=== PATIENT | female | born 1985 ===

== ENCOUNTER 2019-02-06 08:36 | Emergency (ER) | payer BC, MEDICAID ==
[2019-02-06 08:38] VITALS: BMI 23.8
[2019-02-06 08:39] VITALS: O2SAT 100
[2019-02-06 10:07] LABS: BASO % 0.6 % (0.0-2.0); EOS # 0.1 K/uL (0.0-0.7); EOS % 1.6 % (0.0-4.0); HEMOGLOBIN 12.9 g/dL (12.0-16.0); LYMPH # 1.4 K/uL (1.0-4.3); LYMPH % 43.3 % (20.0-40.0); MEAN CELL VOLUME 86.2 fl (81.0-99.0); MEAN CORPUSCULAR HEMOGLOBIN 29.3 pg (27.0-31.0); MEAN PLATELET VOLUME 8.4 fl (7.2-11.7); MONO # 0.4 K/uL (0.0-0.8); MONO % 10.8 % (0.0-10.0); NEUT # 1.4 K/uL (1.8-7.0); NEUT % 43.7 % (50.0-75.0); RBC 4.38 Mil/uL (3.80-5.20); RED CELL DISTRIBUTION WIDTH 13.3 % (11.5-14.5); WHITE BLOOD COUNT 3.3 K/uL (4.8-10.8)
[2019-02-06 10:19] LABS: BLOOD UREA NITROGEN 11 mg/dl (7-17); CALCIUM 9.4 mg/dL (8.4-10.2); GFR NON-AFRICAN AMERICAN > 60
--- NOTE | 2019-02-06 11:23 | MRI ---
Date of service: 02/06/2019 PROCEDURE: MR LUMBAR SPINE WITHOUT CONTRAST HISTORY: Lower back pain right leg pain weakness COMPARISON: None available. TECHNIQUE: Multiecho multiplanar sequences were performed through the lumbar spine without the use of intravenous contrast. FINDINGS: There is normal alignment of the lumbar vertebral bodies. There is normal lumbar lordosis. There is no acute fracture, spondylolysis or spondylolisthesis. Bone marrow signal is within normal limits. The conus medullaris terminates at a normal level and the nerve roots of cauda equina are normal. The paraspinous soft tissues are normal. Imaged portion of the retroperitoneum is within normal limits. T12-L1: No disc herniation, spinal canal stenosis or neural foraminal narrowing. L1-2: No disc herniation, spinal canal stenosis or neural foraminal narrowing. L2-3: No disc herniation, spinal canal stenosis or neural foraminal narrowing. Mild bilateral facet arthropathy. L3-4: Minimal posterior disc bulge. No disc herniation, spinal canal stenosis or neural foraminal narrowing. L4-5: Mild posterior disc bulge and mild bilateral facet arthropathy without spinal canal stenosis or neural foraminal narrowing. L5-S1: Central and right paracentral annular tear and broad-based disc protrusion abuts the traversing right S1 nerve root. No central spinal canal stenosis. Mild bilateral facet arthropathy without neural foraminal narrowing. OTHER FINDINGS: None. IMPRESSION: Central and right paracentral annular tear and broad-based disc protrusion at L5-S1 abuts the traversing right S1 nerve root without spinal spinal canal stenosis. No neural foraminal narrowing.
--- NOTE | 2019-02-06 12:30 | ED PDOC ---
HPI: Back Time Seen by Provider: 02/06/19 08:57 Chief Complaint (Nursing): Back Pain Chief Complaint (Provider): Back Pain History Per: Patient History/Exam Limitations: no limitations Onset/Duration Of Symptoms: Days (x 2) Current Symptoms Are (Timing): Still Present Quality Of Discomfort: "Pain" Associated Symptoms: New Weakness, New Numbness Additional Complaint(s): 33 year old male presents to the ED for evaluation of severe lower back pain radiating to her right leg associated with numbness and weakness for two days. Patient reports difficulty walking because the pain worsens when she moves. Her right leg becomes weak to the point where she has to lie down. Patient took Tylenol and Motrin with no relief. Denies urinary complaints, such as incontinence, gait problems and a prior history of back pain. PMD: Camilo Past Medical History Reviewed: Historical Data, Nursing Documentation, Vital Signs Vital Signs: Last Vital Signs Temp 98.6 F 02/06/19 08:38 Pulse 67 02/06/19 08:38 Resp 18 02/06/19 08:38 BP 125/82 02/06/19 08:38 Pulse Ox 100 02/06/19 08:38 - Medical History PMH: No Chronic Diseases - Surgical History Surgical History: No Surg Hx - Family History Family History: States: Unknown Family Hx - Home Medications Home Medications: Ambulatory Orders Medication Instructions Recorded Methylprednisolone [Medrol Dose 4 mg PO ASDIR #21 mg 02/06/19 Pack (21 tabs)] oxyCODONE/Acetaminophen [Percocet 1 ea PO Q6 PRN #12 tab 02/06/19 5/325 mg Tab] - Allergies Allergies/Adverse Reactions: Allergies Allergy/AdvReac Type Severity Reaction Status Date / Time No Known Allergies Allergy Verified 02/06/19 08:50 Review of Systems ROS Statement: Except As Marked, All Systems Reviewed And Found Negative Constitutional: Positive for: Weakness (and numbness in right leg ) Musculoskeletal: Positive for: Back Pain (radiating to legs) Physical Exam - Reviewed Nursing Documentation Reviewed: Yes Vital Signs Reviewed: Yes - Physical Exam Appears: Positive for: Non-toxic, No Acute Distress Head Exam: Positive for: ATRAUMATIC, NORMAL INSPECTION, NORMOCEPHALIC Skin: Positive for: Normal Color, Warm, Dry Eye Exam: Positive for: EOMI, Normal appearance, PERRL Neck: Positive for: Normal, Painless ROM, Supple Cardiovascular/Chest: Positive for: Regular Rate, Rhythm. Negative for: Murmur Respiratory: Positive for: Normal Breath Sounds. Negative for: Respiratory Distress Gastrointestinal/Abdominal: Positive for: Normal Exam, Soft. Negative for: Tenderness Back: Positive for: Other (tenderness to lower back paraspinally) Extremity: Positive for: Other (+ straight leg test bilaterally at 45 degrees). Negative for: Deformity Neurological/Psych: Positive for: Awake, Alert, Normal Tone, Symmetric/Intact Strength (5/5 strength bilaterally), Oriented (x 3), Gait (steady). Negative for: Motor/Sensory Deficits - Laboratory Results Result Diagrams: 02/06/19 09:50 02/06/19 09:50 - ECG O2 Sat by Pulse Oximetry: 100 (RA) Pulse Ox Interpretation: Normal - Progress Re-evaluation Time: 14:20 Condition: Re-examined, Improved Medical Decision Making Medical Decision Makin:27 Impression: back pain and right leg paresthesia/ weakness Differential dxs include but are not limited to: lumbar radiculopathy r/o cauda equina Initial Plan: --BMP --CBC --ESR --Urine preg --Urine dip --Lumbar spine MRI --Flexeril 10 mg PO --Toradol 15 mg PO 11:20 MRI FINDINGS: There is normal alignment of the lumbar vertebral bodies. There is normal lumbar lordosis. There is no acute fracture, spondylolysis or spondylolisthesis. Bone marrow signal is within normal limits. The conus medullaris terminates at a normal level and the nerve roots of cauda equina are normal. The paraspinous soft tissues are normal. Imaged portion of the retroperitoneum is within normal limits. T12-L1: No disc herniation, spinal canal stenosis or neural foraminal narrowing. L1-2: No disc herniation, spinal canal stenosis or neural foraminal narrowing. L2-3: No disc herniation, spinal canal stenosis or neural foraminal narrowing. Mild bilateral facet arthropathy. L3-4: Minimal posterior disc bulge. No disc herniation, spinal canal stenosis or neural foraminal narrowing. L4-5: Mild posterior disc bulge and mild bilateral facet arthropathy without spinal canal stenosis or neural foraminal narrowing. L5-S1: Central and right paracentral annular tear and broad-based disc protrusion abuts the traversing right S1 nerve root. No central spinal canal stenosis. Mild bilateral facet arthropathy without neural foraminal narrowing. OTHER FINDINGS: None. IMPRESSION: Central and right paracentral annular tear and broad-based disc protrusion at L5-S1 abuts the traversing right S1 nerve root without spinal spinal canal stenosis. No neural foraminal narrowing. 1400 Patient was given instructions on safe opioid Rx use. I explained risks and benefits associated with opioid use, offered alternatives, and provided safety instructions. Scribe Attestation: Documented by Ana Rosa Grove, acting as a scribe Renetta Aly MD Provider Scribe Attestation: All medical record entries made by the Scribe were at my direction and personally dictated by me. I have reviewed the chart and agree that the record accurately reflects my personal performance of the history, physical exam, medical decision making, and the department course for this patient. I have also personally directed, reviewed, and agree with the discharge instructions and disposition Disposition - Clinical Impression Clinical Impression: Back pain, Bulging lumbar disc - Patient ED Disposition Is Patient to be Admitted: No Doctor Will See Patient In The: Office Counseled Patient/Family Regarding: Studies Performed, Diagnosis, Need For Followup - Disposition Referrals: Ky Garrett MD [Staff Provider] - Jenniffer Richard MD [Staff Provider] - [facility] [Outside] Disposition: Routine/Home Disposition Time: 14:21 Condition: IMPROVED Additional Instructions: ARELI JARA, thank you for letting us take care of you today. Your provider was Carlos Aly MD and you were treated for BACK PAIN. The emergency medical care you received today was directed at your acute symptoms. If you were prescribed any medication, please fill it and take as directed. It may take several days for your symptoms to resolve. Return to the Emergency Department if your symptoms worsen, do not improve, or if you have any other problems. Please contact your doctor or call one of the physicians/clinics you have been referred to that are listed on the Patient Visit Information form that is inclu ded in your discharge packet. Bring any paperwork you were given at discharge with you along with any medications you are taking to your follow up visit. Our treatment cannot replace ongoing medical care by a primary care provider outside of the emergency department. Thank you for allowing the [facility] team to be part of your care today. If you had an X-Ray or CT scan: A Radiologist will review the ED reading if any change in treatment is needed we will contact you. 1 week if you have not heard back. Prescriptions: Methylprednisolone [Medrol Dose Pack (21 tabs)] 4 mg PO ASDIR #21 mg oxyCODONE/Acetaminophen [Percocet 5/325 mg Tab] 1 ea PO Q6 PRN #12 tab PRN Reason: Pain, Severe (8-10) Instructions: Herniated Disc, Opioids for Short-Term Treatment of Pain, Taking Narcotics Safely Forms: [employer] ([place]ic), [facility] School/Work Excuse
[2019-02-06] MEDS ORDERED: Oxycodone/Acetaminophen 5/325 mg Tab PO ONE (12:40)
[2019-02-06] MEDS ORDERED: Oxycodone/Acetaminophen 5/325 mg Tab ONE (13:18)
[2019-02-06 14:38] VITALS: BP 119/60; PULSE 64; RESP 16; TEMP 98.4
== END 2019-02-06 14:35 | disposition home or self-care (01) ==
LOC: H.ER 08:36
DX: M54.9 Dorsalgia, unspecified (principal); M51.26 Other intervertebral disc displacement, lumbar region
CPT/HCPCS: 72148; 80048; 81025; 85025; 85651; 96374; 99284; J1885